=== PATIENT | male | born 2000 | race African-American/Black ===

== ENCOUNTER 2020-09-24 13:04 | Inpatient (IN) ==
[2020-09-24 13:42] LABS: Basophils % 0.2 % (0.0-0.8); Eosinophils % 0.1 % (0.00-10.9); Hematocrit 41.5 VOL% (42.0-52.0); Hemoglobin 14.5 GM/DL (14.0-18.0); Immature Granulocytes % 0.3 %; Immature Granulocytes Absolute 0.04 #; Lymphocytes # 1.7 10*3/uL (1.4-4.0); Lymphocytes % 12.1 % (21.2-54.2); Mean Corpuscular HGB Conc 34.9 GM/DL (32-36); Mean Corpuscular Volume 85.4 FL (87-102); Mean Platelet Volume 10.9 FL (9.6-12.0); Monocytes % 9.5 % (1.7-12.7); Neutrophils % 77.8 % (38.7-73.9); Platelet Count 186 T/CUMM (130-400); Red Blood Count 4.86 MC/CUMM (3.8-5.5); Red Cell Distribution Width 12.8 % (9.3-17.3); White Blood Count 14.1 T/CUMM (4-12)
[2020-09-24] MEDS ORDERED: GENTAMICIN INJ 140 MG in SODIUM CHLORIDE 0.9% 100 ML IV STA (13:59)
[2020-09-24] MEDS ORDERED: CLINDAMYCIN INJ 900 MG/50 ML PREMIX IV STA (13:59)
[2020-09-24 14:01] LABS: Bilirubin,Total 0.5 MG/DL (0.20-1.00); Calcium 8.6 MG/DL (8.5-10.1); Osmolality,Calculated 267.2 MOS/KG (273-304); Potassium 3.5 MMOL/L (3.5-5.1); Total Protein 7.9 G/DL (6.4-8.2)
[2020-09-24] MEDS ORDERED: GLUCAGON 1 MG VIAL IM PRN (14:33)
[2020-09-24] MEDS ORDERED: NICOTINE 21 MG/24 HR PATCH TRANSDERM PRN (14:33)
[2020-09-24] MEDS ORDERED: DEXTROSE 50% 25 GM/50 ML VIAL IV PRN (14:33)
[2020-09-24] MEDS ORDERED: MORPHINE 2 MG/1 ML SYRINGE IV PRN (14:33)
[2020-09-24] MEDS ORDERED: BISACODYL 5 MG TABLET PO PRN (14:33)
[2020-09-24] MEDS ORDERED: ONDANSETRON 4 MG/2 ML VIAL IV PRN (14:33)
[2020-09-24] MEDS ORDERED: ACETAMINOPHEN 325 MG TABLET PO PRN (14:33)
[2020-09-24] MEDS ORDERED: DIPH/TET/ACEL PERT BOOSTER VACCINE 0.5 ML VIAL IM ONE (14:41)
[2020-09-24] MEDS: ENOXAPARIN 40 MG/0.4 ML SYRINGE SUBCUT SCH (14:56)
[2020-09-24] MEDS: SODIUM CHLORIDE 0.9% 1,000 ML IV SCH (15:16)
[2020-09-24] MEDS: cefTRIAXone 1,000 MG in SODIUM CHLORIDE 0.9% 100 ML IV SCH (15:16)
[2020-09-24] MEDS: CLINDAMYCIN INJ 600 MG/50 ML PREMIX IV SCH (21:50)
[2020-09-25] MEDS: SODIUM CHLORIDE 0.9% 1,000 ML IV SCH ×3 (02:25→10:02)
[2020-09-25 05:09] LABS: Basophils % 0.3 % (0.0-0.8); Eosinophils # 0.1 10*3/uL (0.0-0.87); Eosinophils % 0.8 % (0.00-10.9); Hematocrit 40.9 VOL% (42.0-52.0); Hemoglobin 13.9 GM/DL (14.0-18.0); Immature Granulocytes % 0.3 %; Immature Granulocytes Absolute 0.03 #; Lymphocytes # 1.9 10*3/uL (1.4-4.0); Lymphocytes % 18.2 % (21.2-54.2); Mean Corpuscular Volume 86.8 FL (87-102); Mean Platelet Volume 11.4 FL (9.6-12.0); Monocytes % 12.7 % (1.7-12.7); Neutrophils % 67.7 % (38.7-73.9); Platelet Count 184 T/CUMM (130-400); Red Blood Count 4.71 MC/CUMM (3.8-5.5); Red Cell Distribution Width 12.8 % (9.3-17.3); White Blood Count 10.6 T/CUMM (4-12)
[2020-09-25] MEDS: CLINDAMYCIN INJ 600 MG/50 ML PREMIX IV SCH ×3 (05:32→21:03)
[2020-09-25 05:43] LABS: Calcium 8.6 MG/DL (8.5-10.1); Potassium 3.8 MMOL/L (3.5-5.1)
[2020-09-25] MEDS: cefTRIAXone 1,000 MG in SODIUM CHLORIDE 0.9% 100 ML IV SCH (15:07)
[2020-09-25] MEDS ORDERED: BUPIVACAINE 0.5% 50 ML VIAL ONE (15:10)
[2020-09-25] MEDS ORDERED: LIDOCAINE 2% 5 ML VIAL ONE (15:53)
[2020-09-25] MEDS ORDERED: SEVOFLURANE 1 UNIT/15 MINUTE INH ONE (15:53)
[2020-09-25] MEDS ORDERED: ONDANSETRON 4 MG/2 ML VIAL ONE (15:53)
[2020-09-25] MEDS ORDERED: MIDAZOLAM 2 MG/2 ML VIAL ONE (15:53)
[2020-09-25] MEDS ORDERED: propofoL 200 MG/20 ML VIAL IV ONE (15:53)
[2020-09-25] MEDS ORDERED: fentaNYL 100 MCG/2 ML VIAL ONE ×2 (15:53→16:18)
[2020-09-25] MEDS ORDERED: PHENYLEPHRINE 1 MG/10 ML SYRINGE IV ONE (16:15)
[2020-09-25] MEDS ORDERED: LACTATED RINGERS 1,000 ML IV ONE (16:17)
[2020-09-25] MEDS ORDERED: ACETAMINOPHEN INJ 1,000 MG/100 ML VIAL IV ONE (16:18)
[2020-09-26] MEDS: CLINDAMYCIN INJ 600 MG/50 ML PREMIX IV SCH ×3 (05:47→22:03)
[2020-09-26 06:01] LABS: Basophils % 0.2 % (0.0-0.8); Eosinophils # 0.1 10*3/uL (0.0-0.87); Eosinophils % 1.5 % (0.00-10.9); Hematocrit 41.8 VOL% (42.0-52.0); Immature Granulocytes % 0.2 %; Immature Granulocytes Absolute 0.02 #; Lymphocytes # 1.7 10*3/uL (1.4-4.0); Lymphocytes % 19.5 % (21.2-54.2); Mean Corpuscular HGB Conc 33.5 GM/DL (32-36); Mean Corpuscular Volume 87.1 FL (87-102); Monocytes % 12.1 % (1.7-12.7); Neutrophils % 66.5 % (38.7-73.9); Platelet Count 195 T/CUMM (130-400); Red Cell Distribution Width 12.5 % (9.3-17.3); White Blood Count 8.6 T/CUMM (4-12)
[2020-09-26 06:29] LABS: Calcium 8.9 MG/DL (8.5-10.1); Osmolality,Calculated 266.1 MOS/KG (273-304); Potassium 4.1 MMOL/L (3.5-5.1)
[2020-09-26] MEDS: ENOXAPARIN 40 MG/0.4 ML SYRINGE SUBCUT SCH (16:30)
[2020-09-26] MEDS: cefTRIAXone 1,000 MG in SODIUM CHLORIDE 0.9% 100 ML IV SCH (16:30)
[2020-09-27] MEDS: CLINDAMYCIN INJ 600 MG/50 ML PREMIX IV SCH (05:22)
[2020-09-27] MEDS: AMPICILLIN INJ 2,000 MG in SODIUM CHLORIDE 0.9% 100 ML IV SCH ×2 (13:44→18:15)
[2020-09-27] MEDS: ENOXAPARIN 40 MG/0.4 ML SYRINGE SUBCUT SCH (14:30)
[2020-09-28] MEDS: AMPICILLIN INJ 2,000 MG in SODIUM CHLORIDE 0.9% 100 ML IV SCH ×2 (01:45→06:27)
[2020-09-28 04:53] LABS: Basophils % 0.6 % (0.0-0.8); Eosinophils # 0.2 10*3/uL (0.0-0.87); Eosinophils % 3.9 % (0.00-10.9); Hematocrit 40.7 VOL% (42.0-52.0); Hemoglobin 13.7 GM/DL (14.0-18.0); Immature Granulocytes % 0.2 %; Immature Granulocytes Absolute 0.01 #; Lymphocytes # 1.9 10*3/uL (1.4-4.0); Mean Corpuscular HGB Conc 33.7 GM/DL (32-36); Mean Corpuscular Volume 86.8 FL (87-102); Mean Platelet Volume 10.4 FL (9.6-12.0); Monocytes % 12.3 % (1.7-12.7); Platelet Count 255 T/CUMM (130-400); Red Blood Count 4.69 MC/CUMM (3.8-5.5); Red Cell Distribution Width 12.7 % (9.3-17.3); White Blood Count 5.1 T/CUMM (4-12)
[2020-09-28 11:56] VITALS: BP 142/66
== END 2020-09-28 12:15 | DRG 506 ==
LOC: N.ED 13:04 → N.EDINP 13:04 → N.3W 15:58 → SUATTDRO 09-25 08:52
PROVIDERS: ADMIT Internal Medicine; ATTEND Internal Medicine